=== PATIENT | female | born 1975 | race Caucasian/White ===

== ENCOUNTER 2019-04-17 20:10 | Inpatient (IN) | payer OTHER, MEDICAID ==
[2019-04-17] MEDS: NITROGLYCERIN 2% 1 GM OINT PKT TD (20:52)
[2019-04-17] MEDS: ASPIRIN 81 MG TAB PO (20:52)
[2019-04-17 21:00] LABS: WHITE BLOOD COUNT 12.2 10^3/ul (4.8-10.8)
[2019-04-17 21:00] LABS: ABNORMAL IP MESSAGE 1; ALANINE AMINOTRANSFERASE 29 IU/L (13-69); ALBUMIN 4.1 g/dl (3.3-4.9); ALBUMIN/GLOBULIN RATIO 1.36; ALKALINE PHOSPHATASE 135 IU/L (42-121); ANION GAP 10 (5-13); ASPARTATE AMINO TRANSFERASE 15 IU/L (15-46); BILIRUBIN,INDIRECT 0.4 mg/dl (0-1.1); BILIRUBIN,TOTAL 0.4 mg/dl (0.2-1.3); BLOOD UREA NITROGEN 12 mg/dl (7-20); CALCIUM 9.6 mg/dl (8.4-10.2); CARBON DIOXIDE 25 mmol/L (21-31); CHLORIDE 102 mmol/L (97-110); CREATININE 0.74 mg/dl (0.44-1.00); Estimated GFR > 60 mL/min (>60); GLUCOSE 129 mg/dl (70-220); HEMATOCRIT 34.7 % (37.0-47.0); HEMOGLOBIN 12.4 g/dl (12.0-16.0); MEAN CORPUSCULAR HEMOGLOBIN 30.7 pg (29.0-33.0); MEAN CORPUSCULAR HGB CONC 35.7 g/dl (32.0-37.0); MEAN CORPUSCULAR VOLUME 85.9 fl (82.0-101.0); MEAN PLATELET VOLUME 11.4 fl (7.4-10.4); POTASSIUM 3.5 mmol/L (3.5-5.1); RED BLOOD COUNT 4.04 10^6/ul (4.20-5.40); RED CELL DISTRIBUTION WIDTH 14.2 % (11.5-14.5); SODIUM 137 mmol/L (135-144); TOTAL PROTEIN 7.1 g/dl (6.1-8.1)
[2019-04-17 21:01] LABS: POSITIVE DIFF @See below
[2019-04-17 21:07] LABS: ADD MAN DIFF? YES; PLATELET COUNT 25 10^3/UL (140-415)
[2019-04-17 21:12] LABS: B-TYPE NATRIURETIC PEPTIDE 145 PG/ML (0-125); TROPONIN-I < 0.012 ng/ml (0.000-0.120)
[2019-04-17 21:42] LABS: ANISOCYTOSIS 1+ (0-0); BAND NEUTROPHILS #M 0.2 10^3/ul (0.0-0.6); BAND NEUTROPHILS % (M) 2 % (0-4); BASOPHIL #M 0.2 10^3/ul (0.0-0.0); BASOPHILS % (M) 2 % (0-2); LYMPHOCYTES #M 4.1 10^3/ul (0.8-2.9); LYMPHOCYTES % (M) 34 % (15-51); MICROCYTOSIS 1+ (0-0); MONOCYTE #M 0.4 10^3/ul (0.3-0.9); MONOCYTES % (M) 4 % (0-11); OVALOCYTES 1+ (0-0); PLATELET ESTIMATE SIG DECREASED; POIKILOCYTOSIS 1+ (0-0); POLYCHROMASIA 1+ (0-0); SEG NEUT #M 7.1 10^3/ul (1.6-7.5); SEGMENTED NEUTROPHILS (M) % 58 % (39-77); SMUDGE%M 24 % (0-0)
[2019-04-17] MEDS: ONDANSETRON 4 MG INJ IV (22:01)
[2019-04-17] MEDS: morphine 4 MG/ML VIAL IV (22:01)
[2019-04-17] MEDS ORDERED: ONDANSETRON 4 MG INJ IV (22:30)
[2019-04-17] MEDS ORDERED: ACETAMINOPHEN 325 MG TAB PO (22:30)
[2019-04-17] MEDS: SOD CHLORIDE 0.9% 1,000 ML IV (22:38)
[2019-04-17] MEDS ORDERED: NITROGLYCERIN (SL) 0.4 MG TAB (23:45)
[2019-04-18] MEDS: NITROGLYCERIN (SL) 0.4 MG TAB SL ×3 (00:06→00:16)
[2019-04-18] MEDS: morphine 2 MG INJ IV ×6 (01:47→22:45)
[2019-04-18] MEDS: SOD CHLORIDE 0.9% 1,000 ML IV ×3 (01:47→18:58)
[2019-04-18] MEDS ORDERED: ALBUTEROL/IPRATROPIUM (NEB) 3 ML AMP HHN (02:00)
[2019-04-18] MEDS ORDERED: MAGNESIUM HYDROXIDE 30ML CUP PO (02:00)
[2019-04-18] MEDS ORDERED: ACETAMINOPHEN 325 MG TAB PO (02:00)
[2019-04-18] MEDS ORDERED: hydrALAzine 20 MG INJ IV (02:00)
[2019-04-18] MEDS ORDERED: ONDANSETRON 4 MG INJ IV (02:00)
[2019-04-18] MEDS ORDERED: NITROGLYCERIN (SL) 0.4 MG TAB SL (02:00)
[2019-04-18] MEDS ORDERED: LORAZEPAM 2 MG INJ IV (02:00)
[2019-04-18] MEDS ORDERED: NACL 0.9% 3 ML SYG IV (02:00)
[2019-04-18 02:11] LABS: ADD MAN DIFF? NO
[2019-04-18 02:16] LABS: ABNORMAL IP MESSAGE 1; BASOPHILS % 0.4 % (0.0-2.0); EOSINOPHILS # 0.3 10^3/ul (0.0-0.5); EOSINOPHILS % 2.7 % (0.0-7.0); HEMATOCRIT 32.2 % (37.0-47.0); HEMOGLOBIN 11.3 g/dl (12.0-16.0); LYMPHOCYTES # 3.5 10^3/ul (0.8-2.9); LYMPHOCYTES % 32.2 % (15.0-51.0); MEAN CORPUSCULAR HEMOGLOBIN 30.4 pg (29.0-33.0); MEAN CORPUSCULAR HGB CONC 35.1 g/dl (32.0-37.0); MEAN CORPUSCULAR VOLUME 86.6 fl (82.0-101.0); MEAN PLATELET VOLUME 11.8 fl (7.4-10.4); MONOCYTE # 0.6 10^3/ul (0.3-0.9); MONOCYTES % 5.8 % (0.0-11.0); NEUTROPHIL # 6.4 10^3/ul (1.6-7.5); NEUTROPHILS % 58.4 % (39.0-77.0); RED BLOOD COUNT 3.72 10^6/ul (4.20-5.40); RED CELL DISTRIBUTION WIDTH 14.2 % (11.5-14.5)
[2019-04-18 02:16] LABS: WHITE BLOOD COUNT 10.9 10^3/ul (4.8-10.8)
[2019-04-18 02:32] LABS: PLATELET COUNT 22 10^3/UL (140-415); POSITIVE DIFF @See below
[2019-04-18 02:35] LABS: CREATINE KINASE 38 IU/L (23-200)
[2019-04-18 02:36] LABS: ANION GAP 7 (5-13); BLOOD UREA NITROGEN 10 mg/dl (7-20); CALCIUM 8.7 mg/dl (8.4-10.2); CARBON DIOXIDE 26 mmol/L (21-31); CHLORIDE 105 mmol/L (97-110); CREATININE 0.68 mg/dl (0.44-1.00); Estimated GFR > 60 mL/min (>60); GLUCOSE 104 mg/dl (70-220); POTASSIUM 3.3 mmol/L (3.5-5.1); SODIUM 138 mmol/L (135-144)
[2019-04-18 02:48] LABS: CK INDEX 0.8; CK-MB 0.32 ng/ml (0.0-2.4); TROPONIN-I 0.034 ng/ml (0.000-0.120)
[2019-04-18 02:56] LABS: FREE T4 (FREE THYROXINE) 1.18 ng/dl (0.64-1.79)
[2019-04-18 03:07] LABS: TYPE AND SCREEN 1 1
[2019-04-18] MEDS: HYDROCODONE/APAP (5/325) TAB PO ×2 (03:56→09:22)
[2019-04-18] MEDS: POTASSIUM CHLORIDE (SR) 20 MEQ TAB PO ×2 (05:29→13:48)
[2019-04-18] MEDS: PANTOPRAZOLE 40 MG INJ IV (06:53)
[2019-04-18 08:24] LABS: ADD MAN DIFF? NO
[2019-04-18 08:27] LABS: WHITE BLOOD COUNT 11.8 10^3/ul (4.8-10.8)
[2019-04-18 08:27] LABS: ABNORMAL IP MESSAGE 1; BASOPHILS % 0.3 % (0.0-2.0); EOSINOPHILS # 0.2 10^3/ul (0.0-0.5); EOSINOPHILS % 1.8 % (0.0-7.0); HEMATOCRIT 31.1 % (37.0-47.0); HEMOGLOBIN 10.8 g/dl (12.0-16.0); LYMPHOCYTES # 2.1 10^3/ul (0.8-2.9); LYMPHOCYTES % 17.8 % (15.0-51.0); MEAN CORPUSCULAR HEMOGLOBIN 30.3 pg (29.0-33.0); MEAN CORPUSCULAR HGB CONC 34.7 g/dl (32.0-37.0); MEAN CORPUSCULAR VOLUME 87.1 fl (82.0-101.0); MEAN PLATELET VOLUME 9.4 fl (7.4-10.4); MONOCYTE # 0.8 10^3/ul (0.3-0.9); MONOCYTES % 6.5 % (0.0-11.0); NEUTROPHIL # 8.6 10^3/ul (1.6-7.5); NEUTROPHILS % 73.3 % (39.0-77.0); PLATELET COUNT 74 10^3/UL (140-415); RED BLOOD COUNT 3.57 10^6/ul (4.20-5.40); RED CELL DISTRIBUTION WIDTH 14.4 % (11.5-14.5)
[2019-04-18 08:28] LABS: POSITIVE DIFF @See below
[2019-04-18 08:54] LABS: CREATINE KINASE 41 IU/L (23-200)
[2019-04-18 08:58] LABS: ANION GAP 7 (5-13); BLOOD UREA NITROGEN 8 mg/dl (7-20); CALCIUM 8.3 mg/dl (8.4-10.2); CARBON DIOXIDE 26 mmol/L (21-31); CHLORIDE 107 mmol/L (97-110); CREATININE 0.59 mg/dl (0.44-1.00); Estimated GFR > 60 mL/min (>60); GLUCOSE 91 mg/dl (70-220); POTASSIUM 3.1 mmol/L (3.5-5.1); SODIUM 140 mmol/L (135-144)
[2019-04-18] MEDS ORDERED: ISOSORBIDE MONONITRATE 20 MG TAB PO (09:00)
[2019-04-18] MEDS ORDERED: HALOPERIDOL 10 MG TABLET PO (09:00)
[2019-04-18 09:07] LABS: CK INDEX 1.2; CK-MB 0.48 ng/ml (0.0-2.4); TROPONIN-I 0.101 ng/ml (0.000-0.120)
[2019-04-18] MEDS: predniSONE 10 MG TAB PO ×2 (09:16→10:43)
[2019-04-18] MEDS: GEMFIBROZIL 600 MG TAB PO ×2 (09:16→20:24)
[2019-04-18] MEDS: HALOPERIDOL 5 MG TAB PO (09:17)
[2019-04-18] MEDS: FAMOTIDINE 20 MG TAB PO ×2 (09:17→20:24)
[2019-04-18] MEDS: DOCUSATE SODIUM 100 MG CAP PO (09:17)
[2019-04-18] MEDS: BUPROPION 100 MG TAB PO ×2 (09:17→20:27)
[2019-04-18] MEDS: METOPROLOL 25 MG TAB PO ×2 (09:18→20:24)
[2019-04-18] MEDS: ISOSORBIDE MONONITRATE(SR)30 MG TAB PO (09:18)
[2019-04-18] MEDS ORDERED: IMMUNE GLOBULIN IV (11:00)
[2019-04-18] MEDS ORDERED: IMMUNE GLOBULIN (GAMUNEX-C) 10 GM/100 ML IV (11:00)
[2019-04-18] MEDS: IMMUNE GLOBULIN IVPB (13:48)
[2019-04-18] MEDS: IGA AVG IVPB (13:48)
[2019-04-18] MEDS: GLY IVPB (13:48)
[2019-04-18] MEDS: IMMUNE GLOBUL IVPB (13:48)
[2019-04-18] MEDS: EVAC CONTAINER IVPB (13:48)
[2019-04-19] MEDS: morphine 2 MG INJ IV ×3 (05:38→17:52)
[2019-04-19] MEDS: PANTOPRAZOLE (EC) 40 MG TAB PO (05:39)
[2019-04-19] MEDS: SOD CHLORIDE 0.9% 1,000 ML IV (05:39)
[2019-04-19 08:34] LABS: ADD MAN DIFF? NO
[2019-04-19 08:43] LABS: ABNORMAL IP MESSAGE 1; BASOPHILS % 0.3 % (0.0-2.0); EOSINOPHILS % 0.5 % (0.0-7.0); HEMATOCRIT 30.2 % (37.0-47.0); HEMOGLOBIN 10.4 g/dl (12.0-16.0); LYMPHOCYTES # 2.1 10^3/ul (0.8-2.9); LYMPHOCYTES % 23.5 % (15.0-51.0); MEAN CORPUSCULAR HEMOGLOBIN 30.2 pg (29.0-33.0); MEAN CORPUSCULAR HGB CONC 34.4 g/dl (32.0-37.0); MEAN CORPUSCULAR VOLUME 87.8 fl (82.0-101.0); MONOCYTE # 0.6 10^3/ul (0.3-0.9); MONOCYTES % 6.3 % (0.0-11.0); NEUTROPHIL # 6.1 10^3/ul (1.6-7.5); NEUTROPHILS % 69.2 % (39.0-77.0); RED BLOOD COUNT 3.44 10^6/ul (4.20-5.40); RED CELL DISTRIBUTION WIDTH 14.7 % (11.5-14.5)
[2019-04-19 08:43] LABS: WHITE BLOOD COUNT 8.8 10^3/ul (4.8-10.8)
[2019-04-19 08:51] LABS: POSITIVE DIFF @See below
[2019-04-19 08:52] LABS: PLATELET COUNT 63 10^3/UL (140-415)
[2019-04-19 09:02] LABS: ANION GAP 5 (5-13); BLOOD UREA NITROGEN 6 mg/dl (7-20); CALCIUM 8.4 mg/dl (8.4-10.2); CARBON DIOXIDE 24 mmol/L (21-31); CHLORIDE 110 mmol/L (97-110); CHOL/HDL RATIO 5.5 RATIO; CHOLESTEROL 165 mg/dl (100-200); CREATININE 0.59 mg/dl (0.44-1.00); Estimated GFR > 60 mL/min (>60); GLUCOSE 94 mg/dl (70-220); HDL CHOLESTEROL 30 mg/dl (34-88); LDL CHOLESTEROL,CALCULATED 103 mg/dl; MAGNESIUM 2.1 mg/dl (1.7-2.5); PHOSPHORUS 2.7 mg/dl (2.5-4.9); POTASSIUM 3.7 mmol/L (3.5-5.1); SODIUM 139 mmol/L (135-144); TRIGLYCERIDES 162 mg/dl (0-149)
[2019-04-19 09:04] LABS: HEMOGLOBIN A1C 5.6 % (0-5.9)
[2019-04-19] MEDS: GEMFIBROZIL 600 MG TAB PO ×2 (09:09→21:21)
[2019-04-19] MEDS: BUPROPION 100 MG TAB PO ×2 (09:09→21:24)
[2019-04-19] MEDS: FAMOTIDINE 20 MG TAB PO ×2 (09:09→21:21)
[2019-04-19] MEDS: predniSONE 20 MG TAB PO (09:10)
[2019-04-19] MEDS: METOPROLOL 25 MG TAB PO ×2 (09:10→21:23)
[2019-04-19] MEDS: ISOSORBIDE MONONITRATE(SR)30 MG TAB PO (09:10)
[2019-04-19] MEDS: HALOPERIDOL 5 MG TAB PO (09:10)
[2019-04-19] MEDS: IMMUNE GLOBUL IVPB (12:56)
[2019-04-19] MEDS: IMMUNE GLOBULIN IVPB (12:56)
[2019-04-19] MEDS: IGA AVG IVPB (12:56)
[2019-04-19] MEDS: GLY IVPB (12:56)
[2019-04-19] MEDS: EVAC CONTAINER IVPB (12:56)
[2019-04-20] MEDS: PANTOPRAZOLE (EC) 40 MG TAB PO (05:51)
[2019-04-20] MEDS: HYDROCODONE/APAP (5/325) TAB PO (05:56)
[2019-04-20 06:46] LABS: ADD MAN DIFF? NO
[2019-04-20 06:51] LABS: WHITE BLOOD COUNT 9.7 10^3/ul (4.8-10.8)
[2019-04-20 06:51] LABS: ABNORMAL IP MESSAGE 1; BASOPHILS % 0.3 % (0.0-2.0); EOSINOPHILS % 0.3 % (0.0-7.0); HEMATOCRIT 31.3 % (37.0-47.0); HEMOGLOBIN 10.7 g/dl (12.0-16.0); LYMPHOCYTES % 30.7 % (15.0-51.0); MEAN CORPUSCULAR HEMOGLOBIN 29.8 pg (29.0-33.0); MEAN CORPUSCULAR HGB CONC 34.2 g/dl (32.0-37.0); MEAN CORPUSCULAR VOLUME 87.2 fl (82.0-101.0); MEAN PLATELET VOLUME 10.4 fl (7.4-10.4); MONOCYTE # 0.6 10^3/ul (0.3-0.9); MONOCYTES % 6.3 % (0.0-11.0); NEUTROPHILS % 62.1 % (39.0-77.0); PLATELET COUNT 70 10^3/UL (140-415); RED BLOOD COUNT 3.59 10^6/ul (4.20-5.40); RED CELL DISTRIBUTION WIDTH 14.4 % (11.5-14.5)
[2019-04-20 06:53] LABS: POSITIVE DIFF @See below
[2019-04-20 07:13] LABS: ANION GAP 9 (5-13); BLOOD UREA NITROGEN 12 mg/dl (7-20); CALCIUM 8.9 mg/dl (8.4-10.2); CARBON DIOXIDE 22 mmol/L (21-31); CHLORIDE 108 mmol/L (97-110); CREATININE 0.61 mg/dl (0.44-1.00); Estimated GFR > 60 mL/min (>60); GLUCOSE 89 mg/dl (70-220); POTASSIUM 3.6 mmol/L (3.5-5.1); SODIUM 139 mmol/L (135-144)
[2019-04-20] MEDS: METOPROLOL 25 MG TAB PO (09:00)
[2019-04-20] MEDS: FAMOTIDINE 20 MG TAB PO (09:55)
[2019-04-20] MEDS: predniSONE 20 MG TAB PO (09:55)
[2019-04-20] MEDS: morphine 2 MG INJ IV ×2 (09:55→14:11)
[2019-04-20] MEDS: HALOPERIDOL 5 MG TAB PO (09:55)
[2019-04-20] MEDS: GEMFIBROZIL 600 MG TAB PO (09:55)
[2019-04-20] MEDS: BUPROPION 100 MG TAB PO (09:56)
[2019-04-20] MEDS: ISOSORBIDE MONONITRATE(SR)30 MG TAB PO (09:57)
== END 2019-04-20 16:34 | disposition home or self-care (01) | DRG 813 ==
LOC: E/R 20:10 → TEL 22:15
PROC: 30233R1 Transfusion of Nonautologous Platelets into Peripheral Vein, Percutaneous Approach (ICD-10-PCS; principal; 2019-04-18)
DX: D69.3 Immune thrombocytopenic purpura (principal); Q24.5 Malformation of coronary vessels; D69.6 Thrombocytopenia, unspecified; F20.9 Schizophrenia, unspecified; F32.9 Major depressive disorder, single episode, unspecified; F41.9 Anxiety disorder, unspecified; I25.10 Atherosclerotic heart disease of native coronary artery without angina pectoris; R07.89 Other chest pain; I25.2 Old myocardial infarction; Z95.5 Presence of coronary angioplasty implant and graft; Z79.82 Long term (current) use of aspirin; Z79.52 Long term (current) use of systemic steroids
CPT/HCPCS: 36415; 36430; 71045; 80048; 80053; 80061; 82550; 82553; 83036; 83735; 83880; 84100; 84439; 84443; 84484; 85025; 86644; 86850; 86900; 86901; 86945; 93005; 93306; 96374; 96375; 97116; 97161; 97166; 97530; 99285-25